=== PATIENT | male | born 1940 | race Caucasian/White ===

== ENCOUNTER → 2019-03-07 12:57 | Outpatient (CLI) | payer OTHER, SELFPAY ==
--- NOTE | 2019-03-07 | DI.ECHO.S_ITS ---
[facility] +---------+ : : [address] : [address] [address] : : : : [id number] : : : : Phone: [phone]+ Echocardiogram Report + + :Name: JEF VELAZQUEZ Study Date: 03/07/2019 Height: 66 in : :[facility] Weight: 174 lb : : Gender: Male BSA: 1.9 m2 : :: 1940 Age: 78 yrs BP: 142/84 mmHg: :Reason For Study: AORTIC VALVE REPLACEMENT : : Performed By: [facility] Staff : :Referring: AUTUMN FONTAINE : + + Interpretation Summary 1) Normal left ventricular size, wall motion, and systolic function (EF 55- 60%). 2) Normal right ventricular size and function. 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 The gradients through the prosthetic aortic valve are within the normal range for this type of valve (mean gradient 12.5mmHg0. 4) The ascending aorta is mildly enlarged at 4.2cm. 5) Compared to the Echo done 04/09/2015, no significant change. Procedure: A two-dimensional transthoracic echocardiogram with color flow and Doppler was performed. The study quality was technically adequate. Prior echo performed on 04/09/19. The patient was in normal sinus rhythm during the exam. Left Ventricle: The left ventricle is normal in size. There is mild concentric left ventricular hypertrophy. The ejection fraction is estimated to be 55-60%. Left ventricular systolic function is normal. Left ventricular wall motion is normal. Right Ventricle: The right ventricle is normal in size and function. Atria: The left atrium is mildly dilated. Right atrial size is normal. The interatrial septum is intact with no evidence for an atrial septal defect. Mitral Valve: The mitral valve leaflets are mildly calcified. There is mild to moderate mitral annular calcification. There is mild mitral regurgitation. Aortic Valve: There is a porcine aortic valve. The prosthetic aortic valve is well-seated. The prosthetic aortic valve appears to open well. The gradients through the prosthetic aortic valve are within the normal range for this type of valve. No aortic regurgitation is present. Tricuspid Valve: The tricuspid valve is normal in structure and function. There is trace tricuspid regurgitation. Pulmonary artery pressures cannot be estimated because of the lack of a measurable TR jet velocity. Pulmonic Valve: The pulmonic valve is normal in structure and function. There is trace pulmonic regurgitation. Great Vessels: The aortic root is borderline dilated. The ascending aorta is mildly enlarged. The pulmonary artery is normal size. The inferior vena cava was not visualized. Pericardium/ Pleura There is no pericardial effusion. There is no pleural effusion. MMode/2D Measurements & Calculations LVIDd: 4.1 cm LVOT diam: 2.0 cm LVIDs: 2.9 cm Ao root diam: 4.0 cm FS: 28.9 % asc Aorta Diam: 4.2 cm EPSS: 1.2 cm IVSd: 1.2 cm LVPWd: 1.2 cm LV powell. diameter/BSA (cm/m^2): 2.2 LV sys. diameter/BSA (cm/m^2): 1.5 LA A2 area: 22.5 cm2 RA long axis: 5.0 cm LA A4 area: 21.4 cm2 RA area: 15.4 cm2 LA length (vol): 5.2 cm RA vol: 40.5 ml LA vol: 79.1 ml RA : 21.5 ml/m2 LA vol index: 41.9 ml/m2 TAPSE: 2.1 cm Doppler Measurements & Calculations Ao V2 max: 236.3 cm/sec LVOT Max Anil: 84.2 cm/sec Ao V2 mean: 163.1 cm/sec LV V1 max P.8 mmHg Ao max P.3 mmHg LV V1 VTI: 21.9 cm Ao mean P.5 mmHg MARY ELLEN(I,D): 1.2 cm2 Ao V2 VTI: 57.9 cm MARY ELLEN(V,D): 1.1 cm2 sev ratio: 0.38 MARY ELLEN indexed to BSA (cm^2/m^2): 0.64 MV E max anil: 68.8 cm/sec TR max anil: 137.9 cm/sec MV A max anil: 119.0 cm/sec TR max P.6 mmHg MV E/A: 0.58 PA V2 max: 76.6 cm/sec Med Peak E' Anil: 5.6 cm/sec PA V2 mean: 52.1 cm/sec E/E' med: 12.4 PA mean P.2 mmHg Lat Peak E' Anil: 7.5 cm/sec PA Accel Time: 0.11 sec E/E' lat: 9.1 E/e' average: 10.7 MV dec time: 0.37 sec SV(LVOT): 69.5 ml Reading Physician:05:17 PM
== END ==
LOC: ECHO 12:58
PROVIDERS: PCP Family Medicine; Visit Provider Internal Medicine Cardiovascular Disease
DX: I34.0 Nonrheumatic mitral (valve) insufficiency (principal); I77.89 Other specified disorders of arteries and arterioles; Z95.2 Presence of prosthetic heart valve
CPT/HCPCS: 93306

== ENCOUNTER → 2020-02-10 10:29 | Outpatient (CLI) | payer MEDICARE, SELFPAY ==
[2020-02-12 05:53] LABS: COVID19 Sendout Not Detected (Not Detect)
== END ==
PROVIDERS: PCP Family Medicine; Visit Provider Physician Assistant
DX: Z01.812 Encounter for preprocedural laboratory examination (principal)
CPT/HCPCS: 87635

== ENCOUNTER 2020-02-13 09:21 | Day surgery (SDC) | payer MEDICARE, SELFPAY ==
[2020-02-13] MEDS: PROPARACAINE 0.5% OPHTH SOL 2 DROPS EYE-OP (10:36)
[2020-02-13] MEDS: CATARACT EYE COMPOUND (10 DROPS/SYRINGE) 3 DROPS EYE-OP (10:41)
[2020-02-13 10:43] VITALS: BMI 28.2
[2020-02-13 10:50] VITALS: BP 142/83; PULSE 62; RESP 16; TEMP 36; O2SAT 99
--- NOTE | 2020-02-13 11:41 | P.OP_ITS ---
Operative Date/Time/Diagnoses Pre-op diagnosis: Nuclear Cataract Left eye Post-op diagnosis: same Procedure & Clinicians Same procedure as scheduled: Yes Surgeon: Emeka Canada Anesthesia Type: MAC +/- and Sedation Operative Notes Procedure in detail: Patient brought to the operating suite. Tetracaine drops placed in the left eye. Patient was prepped and draped in sterile manner. Wire lid speculum was placed in the eye. Betadine drops were placed on the eye. This was irrigated. Lidocaine jelly was placed on the eye. A paracentesis port was created with a side-port blade. 0.1 mL 1% preservative free lidocaine was injected into the anterior chamber. The anterior chamber was deepened with viscoelastic. 2.6 mm keratome was used to create a temporal clear corneal incision. Cystotome and Utrata forceps were used to create continuous tear capsulorrhexis. Balanced salt solution was used to hydro dissect the nucleus. The phacoemulsification handpiece was inserted and the nucleus was removed using the stop and chop technique. The irrigation aspiration handpiece was inserted and the remaining cortex was removed. Anterior chamber was deepened with viscoe lastic. An Cruz ZCB00 intraocular lens with a power of 20.0 was injected into the capsular bag. Irrigation aspiration handpiece was inserted and the remaining viscoelastic was removed. Incision was hydrated with balanced salt solution and found to be leak free with pressure with Weck-Whitney sponges. 0.1 mL Vigamox injected anterior chamber. 0.3 mL Kenalog 10 mg was injected subconjunctivally. Lid speculum was removed. The patient left the operating room in excellent condition. Complications: none Post-operative Condition: stable Disposition: same day surgery
--- NOTE | 2020-02-13 11:41 | PM.PREOP ---
Pre-operative Note Interval Note History & Physical reviewed/Exam performed by Physician: Yes Changes to H&P: No
[2020-02-13] MEDS: PHENYLEPHRINE/LIDOCAINE VIAL (OR) 0.2 ML EYE-OP (12:01)
[2020-02-13] MEDS: TRIAMCINOLONE 50 MG/5 ML VIAL INJ (12:02)
[2020-02-13] MEDS: LIDOCAINE JELLY 2% 5 ML 1 APPLIC TOP (12:02)
[2020-02-13] MEDS: TETRACAINE 0.5% OPHTH DROPS 4 ML 2 DROPS EYE-OP (12:02)
[2020-02-13] MEDS: MOXIFLOXACIN INJ 5 MG/ML VIAL EYE-OP (12:02)
[2020-02-13] MEDS: CHONDROIDTIN/SOD HYALURONATE 1.05 ML SYRINGE INTRAOCULA (12:02)
[2020-02-13] MEDS: BALANCED SALT IRRIG SOLN NO.2 500 ML, EPINEPHrine 1 MG IRR (12:03)
[2020-02-13 12:22] VITALS: BP 130/76; PULSE 58; RESP 16; TEMP 36.7; O2SAT 95
--- NOTE | 2020-02-13 12:40 | SUR.PHASEII ---
Pt panday to go, [facility] called, Dr Canada aware pt going to friends condo via taxi. Ffriend will stay with pt post op.
== END 2020-02-13 12:44 | disposition home or self-care (01) ==
LOC: OR 09:24
PROVIDERS: PCP Family Medicine; Referring Provider Ophthalmology; Visit Provider Ophthalmology
PROC: (CPT 66984; principal; 2020-02-13 10:45)
DX: H25.12 Age-related nuclear cataract, left eye (principal); J44.9 Chronic obstructive pulmonary disease, unspecified; R25.1 Tremor, unspecified; Z86.73 Personal history of transient ischemic attack (TIA), and cerebral infarction without residual deficits; D64.9 Anemia, unspecified
CPT/HCPCS: 66984; J0171; J2250; J3301

== ENCOUNTER 2021-09-12 18:47 | Emergency (ER) | payer MEDICARE, SELFPAY ==
[2021-09-12 19:07] VITALS: BP 147/81; PULSE 57; RESP 16; TEMP 36.3; O2SAT 100; BMI 20.7
--- NOTE | 2021-09-12 19:24 | DI.RAD.S_ITS ---
PROCEDURE: XR CHEST 1V INDICATIONS: altered mental status TECHNIQUE: One view of the chest was acquired. COMPARISON: [facility], CHEST 2 VIEW, 06/12/2016, 12:08. FINDINGS: Surgical changes and devices: Median sternotomy wires are seen. Lungs and pleura: Lungs are clear. No pleural effusions or pneumothorax. Mediastinum: Mediastinal contours appear normal. Heart size is mildly enlarged. Bones and chest wall: No suspicious bony lesions. Overlying soft tissues appear unremarkable. IMPRESSION: No acute cardiopulmonary pathology. Dictated by: Ivan Escobar M.D. on 09/12/2021 at 19:52 Approved by: Ivan Escobar M.D. on 09/12/2021 at 19:52
--- NOTE | 2021-09-12 19:24 | DI.CT.S_ITS ---
PROCEDURE: CT HEAD/BRAIN WO CON INDICATIONS: Dizziness, confusion, headache four days TECHNIQUE: Noncontrast 4.5 mm thick angled axial sections acquired from the foramen magnum to the vertex, with coronal and sagittal reformats. For radiation dose reduction, the following was used: automated exposure control, adjustment of mA and/or kV according to patient size. COMPARISON: [facility], MR, MR BRAIN WITHOUT CONTRAST, 04/28/2017, 19:34. FINDINGS: Image quality: Excellent. CSF spaces: Basal cisterns are patent. No extra-axial fluid collections. The ventricles are symmetric in size and shape. Brain: No intracranial bleeds or masses. There is cerebral volume loss for age, with resultant ventricular and sulcal prominence. There are periventricular and deep white matter chronic small vessel ischemic changes. There is intracranial internal carotid artery atherosclerosis. Skull and face: Calvarium and visualized facial bones appear intact, without suspicious lesions. Sinuses: Visualized sinuses and mastoids are clear. IMPRESSION: No CT evidence of acute intracranial abnormalities. No significant changes from previous study. Dictated by: Ivan Escobar M.D. on 09/12/2021 at 20:04 Approved by: Ivan Escobar M.D. on 09/12/2021 at 20:05
[2021-09-12 19:45] LABS: Add Manual Diff / Slide Review NO; Basophils Absolute Auto 100 /uL (0-100); Basophils Percent Auto 1.1 % (0-2); Eosinophils Absolute Auto 100 /uL (0-450); Eosinophils Percent Auto 2.1 % (2-4); Hematocrit 37.1 % (41-53); Hemoglobin 12.8 g/dL (13.5-17.5); Lymphocytes Absolute Auto 1000 /uL (1100-4500); Lymphocytes Percent Auto 20.3 % (25-40); Mean Corpuscular HGB Conc 34.6 % (30-36); Mean Corpuscular Hemoglobin 32.6 PG (26-34); Mean Corpuscular Volume 94.3 fL (80-100); Monocytes Absolute Auto 500 /uL (0-900); Monocytes Percent Auto 10.2 % (3-14); Neutrophils Absolute Auto 3100 /uL (1500-7000); Neutrophils Percent Auto 66.3 % (50-75); Platelet Count 174 X10^3/uL (150-400); Red Blood Cell Count 3.93 X10^6/uL (4.5-5.9); Red Cell Distribution Width 14.4 % (11.6-14.8); White Blood Cell Count 4.8 X10^3/uL (4.5-11.0)
[2021-09-12 19:59] LABS: Alanine Aminotransferase 21 IU/L (<50); Albumin Globulin Ratio 1.7 (1.0-2.8); Alkaline Phosphatase 52 U/L (38-126); Aspartate Aminotransferase 32 IU/L (17-59); BUN Creatinine Ratio 25.9 (6-22); Bilirubin Total 0.6 mg/dL (0.2-1.3); Blood Urea Nitrogen 21 mg/dL (9-20); Calcium 8.7 mg/dL (8.4-10.2); Carbon Dioxide 30 mmol/L (22-32); Chloride 104 mmol/L (98-107); Estimated Glomerular Filt Rate > 60 mL/min (>60); Globulin 2.4 g/dL (1.7-4.1); Glucose 84 mg/dL (80-110); HEMOLYSIS < 15 (0-50); Potassium 4.4 mmol/L (3.4-5.1); Sodium 138 mmol/L (137-145); Total Protein 6.4 g/dL (6.3-8.2)
--- NOTE | 2021-09-12 22:49 | ED.NEUROSD ---
HPI - Neuro Symptoms/Deficit General Chief Complaint: Neuro Symptoms/Deficit Stated Complaint: Dizziness/Confussed Time Seen by Provider: 09/12/21 22:48 History of Present Illness HPI Narrative: lady year old male nonsmoker with history of aortic valve replacement presents with episodic symptoms over the past 3-4 days. He states it when he has been waking up he has had a vague occipital headache that is achy in nature and goes away by the end of the morning. He states that in addition to these headaches he has had some slight worsening in his gait. He states that for some time he has had a purposeful and slightly shuffling gait but things and then bit difficult for the past few days, but only at certain times. He states that his symptoms tend to improve by night. He denies any vision change or speech difficulty. He denies any unilateral issues. He has had no injury nor fever or chills. He denies any neck pain or fullness. He denies any change in medications or diet. He denies urinary complaints. On Anticoagulants: Yes (aspirin) Related Data Home Medications Medication Instructions Recorded Confirmed VITAMIN D (Vitamin D3) 2,000 unit PO QDAY #0 12/06/12 lenalidomide 10 mg capsule 10 mg PO Q DAY #28 cap 12/06/12 02/13/20 (Revlimid) cyanocobalamin (vitamin B-12) 1,000 mcg PO Q DAY #0 07/08/16 02/13/20 1,000 mcg tablet,extended release ferrous gluconate 324 mg (38 mg 324 mg PO Q DAY #0 08/04/16 02/13/20 iron) tablet pyridoxine (vitamin B6) 100 mg 100 mg PO QDAY #0 08/04/16 02/13/20 tablet calcium carbonate 500 mg calcium 1 tab PO Q DAY #0 02/26/17 02/13/20 (1,250 mg) tablet multivitamin (Multiple Vitamins) 1 tab PO QDAY #0 02/26/17 02/13/20 tamsulosin 0.4 mg capsule (Flomax) 0.4 mg PO QDAY #0 07/20/17 02/13/20 Previous Rx's Medication Instructions Recorded finasteride 5 mg tablet 5 mg PO QDAY #30 10/13/16 Allergies Allergy/AdvReac Type Severity Reaction Status Date / Time No Known Drug Allergies Allergy Verified 09/12/21 19:12 Review of Systems Review of Systems Narrative: GENERAL: Denies chills, fatigue, malaise, fever, sweats. HEENT: Denies sinus pain, ear pain, sore throat, difficulty swallowing, dizziness. RESPIRATORY: Denies dyspnea, cough, wheezing, hemoptysis, sputum. CARDIOVASCULAR: Denies chest pain, palpitations, orthopnea, edema, GASTROINTESTINAL: Denies nausea, vomiting, abdominal pain, diarrhea, constipation, melena. : Denies dysuria, frequency, incontinence, hematuria, urinary retention. MUSCULOSKELETAL: denies weakness, joint pain, or bony pain SKIN: Denies rash, skin lesions, or other NEUROLOGIC: See HPI PSYCHIATRIC: No concerning psychosocial issues. 12 point review of systems is negative except for those stated above Hematologic/Lymphatic On Anticoagulants: Yes (aspirin) Patient History Surgical History History of aortic valve replacement Family History Brother Age: 81 Obesity Brother Age: 60 Obesity Sister Age: 65 Obesity Sister Age: 56 Obesity Social History Smoking Status: Never smoker Smoking Status: Never smoker alcohol intake frequency: a few times a month Substance Use Type: does not use Exam Narrative Exam Narrative: GENERAL: [ 81] year old patient appears stated age. Well-developed patient, in no obvious distress, GCS 15, resting comfortably HEAD: Atraumatic. Normocephalic. EYES: Pupils equal round and reactive. Extraocular motions intact. No scleral icterus. No injection or drainage. ENT: Nose without bleeding, purulent drainage. Throat without erythema, tonsillar hypertrophy or exudate. Airway patent. NECK: Trachea midline. Non tender CARDIOVASCULAR: Regular rate and rhythm without murmurs, gallops, or rubs. RESPIRATORY: Clear to auscultation. Breath sounds equal bilaterally. No wheezes, rales, or rhonchi. GASTROINTESTINAL: Abdomen soft, non-tender, nondistended. EXTREMITIES: No edema or joint tenderness. BACK: Nontender without deformity or crepitance. No flank tenderness. NEURO: AOx3. cranial nerves 2 through 12 grossly intact SKIN: No rash or erythema of visible areas NIH Stroke Scale 1a. LOC: Patient is alert and keenly responsive (0) 1b. LOC Questions: Patient answers both LOC questions accurately (1) accidentally said September instead of August, quickly corrected but was initially in correct 1c. LOC Commands: Patient performs both tasks correctly (0) 2. Best Gaze: Normal (0) 3. Visual: No visual loss (0) 4. Facial palsy: Normal symmetrical movements (0) 5. Motor arm: No drift (0) 6. Motor leg: No drift (0) 7. Limb ataxia: Absent (0) 8. Sensory: Normal (0) 9. Best language: No aphasia; normal (0) 10. Dysarthria: Normal (0) 11. Extinction and inattention: No abnormality (0) NIHSS: 1 Initial Vital Signs Initial Vital Signs: Vital Signs Temperature 97.4 F L 09/12/21 19:07 Pulse Rate 57 L 09/12/21 19:07 Respiratory Rate 16 09/12/21 19:07 Blood Pressure 147/81 H 09/12/21 19:07 Pulse Oximetry 100 09/12/21 19:07 Course Orders Ordered: Discontinued Medications Sodium Chloride (Normal Saline 0.9%) 500 mls @ 1,000 mls/hr IV BOLUS ONE Stop: 09/12/21 23:43 Last Admin: 09/12/21 23:20 Dose: 1,000 mls/hr Documented by: YA Vital Signs Vital signs: Vital Signs - 8 hr 09/12/21 19:07 Temperature 97.4 F L Pulse Rate 57 L Respiratory Rate 16 Blood Pressure 147/81 H Pulse Oximetry 100 MDM - Neuro Symptoms/Deficit Lab Data Result diagrams: 09/12/21 19:35 09/12/21 19:35 Labs: Lab Results 09/12/21 09/12/21 09/12/21 Range/Units 19:35 19:35 23:49 WBC 4.8 (4.5-11.0) X10^3/uL RBC 3.93 L (4.5-5.9) X10^6/uL Hgb 12.8 L (13.5-17.5) g/dL Hct 37.1 L (41-53) % MCV 94.3 (80-100) fL MCH 32.6 (26-34) PG MCHC 34.6 (30-36) % RDW 14.4 (11.6-14.8) % Plt Count 174 (150-400) X10^3/uL Neut % (Auto) 66.3 (50-75) % Lymph % (Auto) 20.3 L (25-40) % [place] % (Auto) 10.2 (3-14) % Eos % (Auto) 2.1 (2-4) % Baso % (Auto) 1.1 (0-2) % Neut # (Auto) 3100 (4455-6926) /uL Lymph # (Auto) 1000 L (5923-2605) /uL [place] # (Auto) 500 (0-900) /uL Eos # (Auto) 100 (0-450) /uL Baso # (Auto) 100 (0-100) /uL Sodium 138 (137-145) mmol/L Potassium 4.4 (3.4-5.1) mmol/L Chloride 104 (98-107) mmol/L Carbon Dioxide 30 (22-32) mmol/L BUN 21 H (9-20) mg/dL Creatinine 0.81 (0.66-1.25) mg/dL Estimated GFR > 60 (>60) mL/min BUN/Creatinine Ratio 25.9 H (6-22) Glucose 84 (80-110) mg/dL Calcium 8.7 (8.4-10.2) mg/dL Total Bilirubin 0.6 (0.2-1.3) mg/dL AST 32 (17-59) IU/L ALT 21 (<50) IU/L Alkaline Phosphatase 52 (38-126) U/L Total Protein 6.4 (6.3-8.2) g/dL Albumin 4.0 (3.5-5.0) g/dL Globulin 2.4 (1.7-4.1) g/dL Albumin/Globulin Ratio 1.7 (1.0-2.8) U Opiates 300ng/mL cut Negative (Negative) Ur Oxycodone Screen Negative (Negative) Urine Methadone Screen Negative (Negative) Ur Barbiturates Screen Negative (Negative) U Tricyclic Antidepress Negative (Negative) Ur Phencyclidine Scrn Negative (Negative) Ur Amphetamines Screen Negative (Negative) U Methamphetamines Scrn Negative (Negative) Ur MDMA Scrn (Ecstasy) Negative (Negative) U Benzodiazepines Scrn Negative (Negative) Urine Cocaine Screen Negative (Negative) U Marijuana (THC) Screen Negative (Negative) Urine Dip Bedside Urine Glucose Negative Bedside Urine Bilirubin - Negative Bedside Urine Ketone - Negative Urine Specific [place] 1.01 Bedside Urine Occult Blood - Negative Bedside Urine pH 6.0 Bedside Urine Protein - Negative Bedside Urine Urobilinogen - Negative Bedside Urine Nitrite - Negative Bedside Urine Leukocytes - Negative Esterase Imaging Data CT scan - head: Radiologist's Impression: [address] [address] [address] Scan Report Signed Patient: Colten Jerez MR#: [id number] : 1940 Acct:[id number] Age/Sex: 81 / M Date of Service: 09/12/21 Loc: ED Accession Number: [id number] ?? Procedure: CT head/brain wo con Ordering Provider: Luis Branham D.O. PROCEDURE:? CT HEAD/BRAIN WO CON ? INDICATIONS:? Dizziness, confusion, headache four days ? TECHNIQUE:? Noncontrast 4.5 mm thick angled axial sections acquired from the foramen magnum to the vertex, with coronal and sagittal reformats.? For radiation dose reduction, the following was used:? automated exposure control, adjustment of mA and/or kV according to patient size.? ? COMPARISON:? [facility], MR, MR BRAIN WITHOUT CONTRAST, 04/28/2017, 19:34. ? FINDINGS:? Image quality:? Excellent.? ? CSF spaces:? Basal cisterns are patent.? No extra-axial fluid collections.? The ventricles are symmetric in size and shape.? ? Brain:? No intracranial bleeds or masses.? There is cerebral volume loss for age, with resultant ventricular and sulcal prominence.? There are periventricular and deep white matter chronic small vessel ischemic changes.? There is intracranial internal carotid artery atherosclerosis.? ? Skull and face:? Calvarium and visualized facial bones appear intact, without suspicious lesions.? ? Sinuses:? Visualized sinuses and mastoids are clear.? ? IMPRESSION:? No CT evidence of acute intracranial abnormalities.? No significant changes from previous study. ? ? Dictated by: Ivan Escobar M.D. on 09/12/2021 at 20:04 ? ? Approved by: Ivan Escobar M.D. on 09/12/2021 at 20:05 ? MDM Narrative Medical decision making narrative: 81-year-old male has very reassuring history, physical exam, labs and imaging multiple diagnoses considered including stroke which is unlikely given lack of findings on imaging 4 days in, lack of ongoing symptoms and global nature. medication, dietary repair heavier all change considered but no pattern of Stadol wish based on patient's history. Lab abnormalities such as electrolyte or other considered but thought unlikely given lack of findings. Patient appropriate for discharge after lengthy discussion bleeding return precautions, patient's questions have been answered to his apparent satisfaction Discharge Plan Departure Patient Disposition: Home Clinical Impression: Dizziness Instructions: Dizziness, Nonvertigo Activity Restrictions/Additional Instructions: *You have been diagnosed with [dizziness and forgetfulness. As we discussed your history and physical exam as well as labs and CT scan are very reassuring and there is no obvious sign of stroke, abnormality in the blood work, urine infection or other diagnosis that would require a specific or immediate intervention *What to do: *Please continue to take your regular medications as directed. [ ] New medication prescriptions sent to your pharmacy: [ ] [ ] New medication written as a paper prescription [ x] No new medications given *Please follow up with your primary care provider in 2-3 days, call for an appointment. Let them know you were seen in the Emergency Department and that we ask that you be seen in follow up. We will electronically transmit a record of today's note if your PCP is in our system *If you do not have a primary care provider please contact the [facility] Resource line at [phone]. They will ask some questions about your medical history and help get you set up with a doctor in the community. *Return to Emergency Department if you should have any new, worsening or concerning symptoms, such as [fever greater than 101 F, shaking chills, worsening pain, persistent vomiting or other bothersome symptoms] Prescriptions: No Action Revlimid 10 MG capsule 10 mg PO Q DAY Qty: 28 0RF VITAMIN D (Vitamin D3) 2,000 unit PO QDAY Qty: 0 0RF cyanocobalamin (vitamin B-12) 1,000 MCG tablet extended release 1,000 mcg PO Q DAY Qty: 0 0RF pyridoxine (vitamin B6) 100 MG tablet 100 mg PO QDAY Qty: 0 0RF ferrous gluconate 324 MG tablet 324 mg PO Q DAY Qty: 0 0RF finasteride 5 MG tablet 5 mg PO QDAY Qty: 30 6RF multivitamin [Multiple Vitamins] 1 EACH tablet 1 tab PO QDAY Qty: 0 0RF calcium carbonate 500 MG tablet 1 tab PO Q DAY Qty: 0 0RF tamsulosin [Flomax] 0.4 MG capsule,extended release 24hr 0.4 mg PO QDAY Qty: 0 0RF Referrals: Frankie Farnsworth MD [Primary Care Provider] -
[2021-09-12 22:51] VITALS: PULSE 54; O2SAT 96
[2021-09-12 22:55] VITALS: PULSE 42
[2021-09-12 23:00] VITALS: BP 134/82
[2021-09-12] MEDS: SODIUM CHLORIDE 0.9% 500 ML 1000 ML IV (23:20)
[2021-09-12 23:30] VITALS: BP 129/78
[2021-09-13] VITALS: BP 130/82; O2SAT 97
[2021-09-13 00:05] LABS: Ur Creatinine 20 (Normal); Ur Specific Gravity 1.015 (Normal); Urine Tetrahydrocannabinol Negative (Negative); Urine pH 5 (Normal)
[2021-09-13 00:06] LABS: UR Morphine/Opiate cutoff 300 Negative (Negative); Urine Amphetamines Negative (Negative); Urine Barbiturates Negative (Negative); Urine Benzodiazepines Negative (Negative); Urine Cocaine Negative (Negative); Urine MDMA Negative (Negative); Urine Methadone Negative (Negative); Urine Methamphetamines Negative (Negative); Urine Oxycodone Negative (Negative); Urine Phencyclidine Negative (Negative); Urine Tricyclic Antidepressant Negative (Negative)
== END 2021-09-13 00:25 | disposition home or self-care (01) ==
PROVIDERS: Emergency Provider Emergency Medicine; PCP Family Medicine
DX: R42 Dizziness and giddiness (principal); R51.9 Headache, unspecified; R41.0 Disorientation, unspecified
CPT/HCPCS: 36415; 70450; 71045; 80053; 80305; 81003; 85025; 99284

== ENCOUNTER 2022-06-22 05:41 | Emergency (ER) | payer MEDICARE, SELFPAY ==
[2022-06-22] VITALS (9 sets, daily range): BP systolic 122–145; BP diastolic 78–91; PULSE 66–79; RESP 16–22; TEMP 37.2; O2SAT 99–100; BMI 49.8
--- NOTE | 2022-06-22 05:44 | DI.RAD.S_ITS ---
PROCEDURE: XR CHEST 1V INDICATIONS: weakness TECHNIQUE: One view of the chest was acquired. COMPARISON: [facility], [facility], XR CHEST 1V, 09/12/2021, 19:28. [facility], [facility], CHEST 2 VIEW, 06/12/2016, 12:08. FINDINGS: Surgical changes and devices: Sternotomy. Lumbar kyphoplasty. Lungs and pleura: Lungs are clear. No pleural effusions or pneumothorax. Mediastinum: Mediastinal contours appear normal. Heart size is normal. Bones and chest wall: No suspicious bony lesions. Overlying soft tissues appear unremarkable. IMPRESSION: No acute cardiopulmonary process. Agree with preliminary report. Dictated by: Chilango Lutz M.D. on 06/22/2022 at 7:59 Approved by: Chilango Lutz M.D. on 06/22/2022 at 8:00
--- NOTE | 2022-06-22 05:52 | ED.GENADULT ---
HPI - General Adult General Chief complaint: Weakness Stated complaint: Weakness Time Seen by Provider: 06/22/22 05:42 Source: patient and EMS Mode of arrival: EMS History of Present Illness HPI narrative: 82M nonsmoker with history of multiple myeloma, thrombophlebitis, aortic valve replacement, endocarditis presents by air medical transport and a chief complaint of generalized weakness. He states that yesterday he was feeling fine unwell and in his normal state of health when he went to sleep. He woke up this morning at about 330 and found himself profoundly weak and had to lower himself of the floor and was unable to make it to the bathroom due to his generalized weakness. He then crawled on the floor for about 90 minutes until he could reach the phone and call 911. On their arrival they found him to be dehydrated in appearance and commented on dry mucous membranes and poor skin turgor, he was given an IV and a 500 cc bolus of lactated Ringer's prior to his arrival his vital signs improved as did his overall feeling, by his arrival he is asymptomatic. Related Data Home Medications Medication Instructions Recorded Confirmed VITAMIN D (Vitamin D3) 2,000 unit PO QDAY ##0 12/06/12 lenalidomide 10 mg capsule 10 mg PO Q DAY #28 caps 12/06/12 02/13/20 (Revlimid) cyanocobalamin (vitamin B-12) 1,000 mcg PO Q DAY ##0 07/08/16 02/13/20 1,000 mcg tablet,extended release ferrous gluconate 324 mg (38 mg 324 mg PO Q DAY ##0 08/04/16 02/13/20 iron) tablet pyridoxine (vitamin B6) 100 mg 100 mg PO QDAY ##0 08/04/16 02/13/20 tablet calcium carbonate 500 mg calcium 1 tab PO Q DAY ##0 02/26/17 02/13/20 (1,250 mg) tablet multivitamin (Multiple Vitamins 1 tab PO QDAY ##0 02/26/17 02/13/20 tablet) tamsulosin 0.4 mg capsule (Flomax) 0.4 mg PO QDAY ##0 07/20/17 02/13/20 Previous Rx's Medication Instructions Recorded finasteride 5 mg tablet 5 mg PO QDAY ##30 10/13/16 nirmatrelvir 300 mg (150 mg See Rx Instructions PO .COMPLEX 06/22/22 x2)-ritonavir 100 mg tablet,dose #30 ea pack(EUA) (Paxlovid) nirmatrelvir 300 mg (150 mg See Rx Instructions PO .COMPLEX 06/22/22 x2)-ritonavir 100 mg tablet,dose #30 ea pack(EUA) (Paxlovid) Allergies Allergy/AdvReac Type Severity Reaction Status Date / Time No Known Drug Allergies Allergy Verified 09/12/21 19:12 Review of Systems Review of Systems Narrative: GENERAL: See HPI HEENT: Denies sinus pain, ear pain, sore throat, difficulty swallowing, dizziness. RESPIRATORY: Denies dyspnea, cough, wheezing, hemoptysis, sputum. CARDIOVASCULAR: See HPI GASTROINTESTINAL: See HPI : Denies dysuria, frequency, incontinence, hematuria, urinary retention. MUSCULOSKELETAL: denies weakness, joint pain, or bony pain SKIN: Denies rash, skin lesions, or other NEUROLOGIC: Denies weakness, headache, numbness, change in speech, confusion, seizures, incoordination. PSYCHIATRIC: No concerning psychosocial issues. 12 point review of systems is negative except for those stated above Patient History Surgical History History of aortic valve replacement Family History Brother Age: 81 Obesity Brother Age: 60 Obesity Sister Age: 65 Obesity Sister Age: 56 Obesity Social History Smoking Status: Never smoker Smoking Status: Never smoker alcohol intake frequency: a few times a month Substance Use Type: does not use Exam Narrative Exam Narrative: GENERAL: [82] year old patient appears stated age. Well-developed patient, in mild distress. HEAD: Atraumatic. Normocephalic. EYES: Pupils equal round and reactive. Extraocular motions intact. No scleral icterus. No injection or drainage. ENT: Nose without bleeding, purulent drainage. Throat without erythema, tonsillar hypertrophy or exudate. Airway patent. NECK: Trachea midline. Non tender CARDIOVASCULAR: Regular rate and rhythm without murmurs, gallops, or rubs. RESPIRATORY: Clear to auscultation. Breath sounds equal bilaterally. No wheezes, rales, or rhonchi. GASTROINTESTINAL: Abdomen soft, non-tender, nondistended. EXTREMITIES: No edema or joint tenderness. BACK: Nontender without deformity or crepitance. No flank tenderness. NEURO: AOx3. SKIN: No rash or erythema of visible areas Initial Vital Signs Initial Vital Signs: Vital Signs Temperature 98.9 F 06/22/22 05:41 Pulse Rate 74 06/22/22 05:41 Respiratory Rate 18 06/22/22 05:41 Blood Pressure 145/91 H 06/22/22 05:41 Pulse Oximetry 100 06/22/22 05:41 Oxygen Delivery Method Room Air 06/22/22 05:41 Course Orders Ordered: Discontinued Medications Sodium Chloride (Normal Saline 0.9%) 1,000 mls @ 1,000 mls/hr IV BOLUS ONE Stop: 06/22/22 06:42 Last Infusion: 06/22/22 07:30 Dose: 0 mls/hr Documented By: Admin: 06/22/22 06:24 Dose: 1,000 mls/hr Documented By: GARTH Vital Signs Vital signs: Vital Signs - 8 hr 06/22/22 05:41 Temperature 98.9 F Pulse Rate 74 Respiratory Rate 18 Blood Pressure 145/91 H Pulse Oximetry 100 Oxygen Delivery Method Room Air Medical Decision Making Lab Data 06/22/22 06:05 06/22/22 06:05 Labs: Lab Results 06/22/22 06/22/22 06/22/22 Range/Units 05:55 06:05 06:05 WBC 4.5 (4.5-11.0) X10^3/uL RBC 3.89 L (4.5-5.9) X10^6/uL Hgb 12.5 L (13.5-17.5) g/dL Hct 36.6 L (41-53) % MCV 94.2 (80-100) fL MCH 32.1 (26-34) PG MCHC 34.0 (30-36) % RDW 14.1 (11.6-14.8) % Plt Count 123 L (150-400) X10^3/uL Neut % (Auto) 78.0 H (50-75) % Lymph % (Auto) 7.5 L (25-40) % [place] % (Auto) 14.1 H (3-14) % Eos % (Auto) 0.1 L (2-4) % Baso % (Auto) 0.3 (0-2) % Neut # (Auto) 3500 (9235-5092) /uL Lymph # (Auto) 300 L (9071-8080) /uL [place] # (Auto) 600 (0-900) /uL Eos # (Auto) 0 (0-450) /uL Baso # (Auto) 0 (0-100) /uL Sodium 134 L (137-145) mmol/L Potassium 3.8 (3.4-5.1) mmol/L Chloride 103 (98-107) mmol/L Carbon Dioxide 25 (22-32) mmol/L BUN 14 (9-20) mg/dL Creatinine 0.81 (0.66-1.25) mg/dL Estimated GFR > 60 (>60) mL/min BUN/Creatinine Ratio 17.3 (6-22) Glucose 90 (80-110) mg/dL Calcium 8.1 L (8.4-10.2) mg/dL Magnesium (1.6-2.3) mg/dL Total Bilirubin 0.8 (0.2-1.3) mg/dL AST 26 (17-59) IU/L ALT 16 (<50) IU/L Alkaline Phosphatase 56 (38-126) U/L Total Creatine Kinase (55-170) U/L CK-MB (CK-2) CK-MB (CK-2) Rel Index Troponin I (0.01-0.034) ng/mL NT-Pro-B Natriuret Pep (<450) pg/mL Total Protein 5.9 L (6.3-8.2) g/dL Albumin 3.5 (3.5-5.0) g/dL Globulin 2.4 (1.7-4.1) g/dL Albumin/Globulin Ratio 1.5 (1.0-2.8) SARS-CoV-2 (PCR) Positive H (Negative) 06/22/22 Range/Units 06:05 WBC (4.5-11.0) X10^3/uL RBC (4.5-5.9) X10^6/uL Hgb (13.5-17.5) g/dL Hct (41-53) % MCV (80-100) fL MCH (26-34) PG MCHC (30-36) % RDW (11.6-14.8) % Plt Count (150-400) X10^3/uL Neut % (Auto) (50-75) % Lymph % (Auto) (25-40) % [place] % (Auto) (3-14) % Eos % (Auto) (2-4) % Baso % (Auto) (0-2) % Neut # (Auto) (1326-7899) /uL Lymph # (Auto) (4153-4761) /uL [place] # (Auto) (0-900) /uL Eos # (Auto) (0-450) /uL Baso # (Auto) (0-100) /uL Sodium (137-145) mmol/L Potassium (3.4-5.1) mmol/L Chloride (98-107) mmol/L Carbon Dioxide (22-32) mmol/L BUN (9-20) mg/dL Creatinine (0.66-1.25) mg/dL Estimated GFR (>60) mL/min BUN/Creatinine Ratio (6-22) Glucose (80-110) mg/dL Calcium (8.4-10.2) mg/dL Magnesium 1.7 (1.6-2.3) mg/dL Total Bilirubin (0.2-1.3) mg/dL AST (17-59) IU/L ALT (<50) IU/L Alkaline Phosphatase (38-126) U/L Total Creatine Kinase 96 (55-170) U/L CK-MB (CK-2) TNP CK-MB (CK-2) Rel Index TNP Troponin I < 0.012 (0.01-0.034) ng/mL NT-Pro-B Natriuret Pep 566 H (<450) pg/mL Total Protein (6.3-8.2) g/dL Albumin (3.5-5.0) g/dL Globulin (1.7-4.1) g/dL Albumin/Globulin Ratio (1.0-2.8) SARS-CoV-2 (PCR) (Negative) Urine Dip Bedside Urine Glucose Negative Bedside Urine Bilirubin - Negative Bedside Urine Ketone +/- 5 Urine Specific [place] 1.010 Bedside Urine Occult Blood - Negative Bedside Urine pH 6.5 Bedside Urine Protein - Negative Bedside Urine Urobilinogen - Negative Bedside Urine Nitrite - Negative Bedside Urine Leukocytes - Negative Esterase Point of care testing: Urine Dip Bedside Urine Glucose Negative Bedside Urine Bilirubin - Negative Bedside Urine Ketone +/- 5 Urine Specific [place] 1.010 Bedside Urine Occult Blood - Negative Bedside Urine pH 6.5 Bedside Urine Protein - Negative Bedside Urine Urobilinogen - Negative Bedside Urine Nitrite - Negative Bedside Urine Leukocytes - Negative Esterase MDM Narrative Medical decision making narrative: CC: 82-year-old male with episode of weakness this morning, improved fluids Complicating co-morbidities: Age Data collected from: Patient Medical records reviewed: Prior notes reviewed in our EMR Differential considered, but not limited to: Dehydration, anemia, sepsis, COVID, from UTI, pneumonia or other, COVID, flu versus other Exam documented above, pertinent findings include:, patient awake, alert and oriented, stable vital signs, moist mucous membranes, heart rate regular rate and rhythm, no signs of respiratory distress, clear lung sounds, no tachypnea, use of accessory muscles or hypoxemia. Abdomen is soft and nontender Lab Test results independently reviewed as above. Pertinent findings: No significant leukocytosis or left shift, no anemia, electrolytes within normal limits, renal function within normal, troponin negative, COVID positive Independently reviewed EKG as above Imaging studies independently reviewed: No acute cardiopulmonary process Treatments: Fluids Re-evaluations: Patient awake, alert and oriented, ambulatory without difficulty, no longer orthostatic. Discussion: 82M with orthostasis, improved with fluids, labs reassuring. EKG and CXR clear. No respiratory distress or hypoxemia, no indication for inpatient. We did discuss whether not he would be a candidate for Paxlovid and he would prefer to get a prescription, he understands he must hold his Tamsulosin. Disposition: see below, along with detailed discharge instructions that have been reviewed with patient as well as indications for ED re-evaluation and additional outpatient follow up Discharge Plan Departure Patient Disposition: Home Clinical Impression: COVID-19 Instructions: COVID-19 Activity Restrictions/Additional Instructions: Rx for Paxlovid sent to [facility]. As we discussed, you must stop your tamsulosin while on this medication as the 2 can interact *You have been diagnosed with [ COVID-19] *What to do: ?* per recommendations from the CDC and the [facility] Department of Health ?* stay home except to get medical care. ?Restrict activities outside your home, except for getting medical care. ?Do not go to work, school, or public areas. ?Avoid using public transportation, ride sharing, or taxis. ?* separate yourself from other people in your home. ?* call ahead before visiting your doctor ?* Wear a facemask ?* Cover your coughs and sneezes ?* Clean your hands often ?* Avoid sharing household items ?* Clean all high-touch services every day ?* Monitor your symptoms and seek prompt medical attention if your illness is worsening, particularly with difficulty in breathing. You may discontinue your isolation when: ?1. You have been fever-free for at least 24 hours without the use of fever reducing medication, AND ?2. Your symptoms are getting better, AND ?3. At least 5 days have passed since symptoms first appeared ?4. If you have fever, continue to stay home until fever resolves Individuals with laboratory confirmed COVID-19 who have not had any symptoms may discontinue home isolation when at least 5 days have passed since the date of their first COVID-19 diagnostic test and have had no subsequent illness You should notifiy any friends and family that have been in close contact *If up to date on COVID Vaccines, then they do not need to quarantine unless symptoms develop. Get tested on day 5 (or sooner if symptoms develop). Take precautions and watch for symptoms until day 10 *If NOT up to date on COVID Vaccines, then CDC recommends quarantine for at least 5 full days. Wear a well fitted mask at home if you must be around others. If they ?develop symptoms they should get tested. If they remain asymptomatic they should get tested on day 5. They should take precautions and monitor for symptoms until day 10. Prescriptions: New Paxlovid (EUA) 300 mg (150 mg x 2)-100 mg tablets,dose pack See Rx Instructions .ROUTE .COMPLEX Qty: 30 0RF Rx Instructions: take TWO 150 mg tablets of nirmatrelvir with ONE 100 mg tablet of ritonavir twice daily for 5 days Paxlovid (EUA) 300 mg (150 mg x 2)-100 mg tablets,dose pack See Rx Instructions .ROUTE .COMPLEX Qty: 30 0RF Rx Instructions: take TWO 150 mg tablets of nirmatrelvir with ONE 100 mg tablet of ritonavir twice daily for 5 days No Action Revlimid 10 MG capsule 10 mg PO Q DAY Qty: 28 VITAMIN D (Vitamin D3) 2,000 unit PO QDAY Qty: 0 cyanocobalamin (vitamin B-12) 1,000 MCG tablet extended release 1,000 mcg PO Q DAY Qty: 0 pyridoxine (vitamin B6) 100 MG tablet 100 mg PO QDAY Qty: 0 ferrous gluconate 324 MG tablet 324 mg PO Q DAY Qty: 0 finasteride 5 MG tablet 5 mg PO QDAY Qty: 30 6RF multivitamin [Multiple Vitamins] 1 EACH tablet 1 tab PO QDAY Qty: 0 calcium carbonate 500 MG tablet 1 tab PO Q DAY Qty: 0 tamsulosin [Flomax] 0.4 MG capsule,extended release 24hr 0.4 mg PO QDAY Qty: 0 Referrals: Frankie Farnsworth MD [Primary Care Provider] - Stand Alone Forms: Patient Portal/API
[2022-06-22 06:16] LABS: Add Manual Diff / Slide Review NO; Basophils Absolute Auto 0 /uL (0-100); Basophils Percent Auto 0.3 % (0-2); Eosinophils Absolute Auto 0 /uL (0-450); Eosinophils Percent Auto 0.1 % (2-4); Hematocrit 36.6 % (41-53); Hemoglobin 12.5 g/dL (13.5-17.5); Lymphocytes Absolute Auto 300 /uL (1100-4500); Lymphocytes Percent Auto 7.5 % (25-40); Mean Corpuscular Hemoglobin 32.1 PG (26-34); Mean Corpuscular Volume 94.2 fL (80-100); Monocytes Absolute Auto 600 /uL (0-900); Monocytes Percent Auto 14.1 % (3-14); Neutrophils Absolute Auto 3500 /uL (1500-7000); Platelet Count 123 X10^3/uL (150-400); Red Blood Cell Count 3.89 X10^6/uL (4.5-5.9); Red Cell Distribution Width 14.1 % (11.6-14.8); White Blood Cell Count 4.5 X10^3/uL (4.5-11.0)
[2022-06-22] MEDS: SODIUM CHLORIDE 0.9% 1,000 ML 1000 ML IV (06:24)
[2022-06-22 06:44] LABS: Creatine Kinase 96 U/L (55-170); Magnesium 1.7 mg/dL (1.6-2.3)
[2022-06-22 06:47] LABS: COVID19 -Nasal RAPID POSITIVE (Negative)
[2022-06-22 06:56] LABS: Alanine Aminotransferase 16 IU/L (<50); Albumin 3.5 g/dL (3.5-5.0); Albumin Globulin Ratio 1.5 (1.0-2.8); Alkaline Phosphatase 56 U/L (38-126); Aspartate Aminotransferase 26 IU/L (17-59); BUN Creatinine Ratio 17.3 (6-22); Bilirubin Total 0.8 mg/dL (0.2-1.3); Blood Urea Nitrogen 14 mg/dL (9-20); Calcium 8.1 mg/dL (8.4-10.2); Carbon Dioxide 25 mmol/L (22-32); Chloride 103 mmol/L (98-107); Estimated Glomerular Filt Rate > 60 mL/min (>60); Globulin 2.4 g/dL (1.7-4.1); Glucose 90 mg/dL (80-110); HEMOLYSIS < 15 (0-50); Potassium 3.8 mmol/L (3.4-5.1); Sodium 134 mmol/L (137-145); Total Protein 5.9 g/dL (6.3-8.2)
[2022-06-22 06:57] LABS: NT-proBNP (BNP-Adult 18+) 566 pg/mL (<450); Troponin I < 0.012 ng/mL (0.01-0.034)
== END 2022-06-22 08:02 | disposition home or self-care (01) ==
PROVIDERS: Emergency Provider Emergency Medicine; PCP Family Medicine
DX: U07.1 COVID-19 (principal)
CPT/HCPCS: 71045; 80053; 81003; 82550; 83735; 83880; 84484; 85025; 87635; 93005; 96360; 99283; 99284; C9803